=== PATIENT | female | born 1970 | race Caucasian/White ===

== ENCOUNTER 2019-01-06 22:38 | Observation (INO) | payer OTHER ==
[~2019-01-06] VITALS: Ht 157.5 cm; Wt 114.3 kg
[2019-01-06] MEDS ORDERED: LIPITOR 20 MG T20 M1 PO (22:48)
[2019-01-06] MEDS ORDERED: ESKALITH300 MG PO (22:48)
[2019-01-06] MEDS ORDERED: NAPROSYN500 MG PO (22:48)
[2019-01-06] MEDS ORDERED: NEXIUM40 MG PO (22:49)
[2019-01-06 23:02] LABS: ABSOLUTE EOSINOPHILS 0.2 thou/uL (0.0-0.7); ABSOLUTE LYMPHOCYTES 2.5 thou/uL (0.8-5.3); ABSOLUTE MONOCYTES 0.6 thou/uL (0.0-1.2); ABSOLUTE NEUTROPHILS 4.5 thou/uL (1.6-8.1); BASOPHILS 0.6 %; EOSINOPHILS 2.6 %; HEMATOCRIT 42.3 % (37.0-47.0); HEMOGLOBIN 13.9 gm/dL (12.0-15.0); LYMPHOCYTES 31.7 %; MCH 29.4 pg (26.0-34.0); MCHC 32.8 g/dL (28.0-37.0); MCV 89.6 fL (80.0-100.0); MONOCYTES 7.5 %; MPV 7.8 fl. (7.2-11.1); NUCLEATED RBCS 0 /100WBC; PLATELET COUNT* 314 thou/uL (150-400); POLYS 57.6 %; RBC 4.72 mil/uL (4.20-5.00); RDW-CV 13.8 % (10.5-14.5); WBC 7.8 thou/uL (4.0-11.0)
[2019-01-06 23:10] LABS: ANION GAP 7 mmol/L (7-16); BUN 13 mg/dL (7-18); CALCIUM 8.8 mg/dL (8.5-10.1); CHLORIDE 106 mmol/L (98-107); CO2 27 mmol/L (21-32); GLUCOSE 94 mg/dL (70-99); POTASSIUM 4.1 mmol/L (3.5-5.1); SODIUM 140 mmol/L (136-145)
[2019-01-06 23:19] LABS: ALBUMIN 3.3 g/dL (3.4-5.0); ALKALINE PHOSPHATASE 99 U/L (46-116); LIPASE 127 U/L (73-393); SGOT 15 U/L (15-37); SGPT 28 U/L (30-65); TOTAL BILIRUBIN 0.2 mg/dL (<0.1-1.0); TROPONIN-I LEVEL <0.06 ng/mL (<0.06)
[2019-01-07] VITALS (12 sets, daily range): BP systolic 122–174; BP diastolic 72–113
[2019-01-07] MEDS ORDERED: LOPRESSOR25 PO (02:22)
[2019-01-07 08:41] LABS: CHOLESTEROL 219 mg/dL (<200); HDL CHOLESTEROL 44 mg/dL (>40); LDL CHOLESTEROL 149 mg/dL (<100); TRIGLYCERIDE 133 mg/dL (<150); VLDL 27 mg/dL (<40)
[2019-01-07 08:42] LABS: SERUM ASSESSMENT Clear
[2019-01-07] MEDS ORDERED: OMEPRAZOLE 20 M20 M1 PO (10:34)
--- NOTE | 2019-01-07 11:53 | NUR ---
Pt is A&O. Pt lives in [place], here on vacation. Per Pt, she has [place] medicaid. No DME. No hx of HH or SNF. Dtr in room. Pt having an Echo and Andiogram today. Following.
--- NOTE | 2019-01-07 14:54 | CARD ---
[address] [address] CARDIAC CATH REPORT Name: BRANDON GOSS Room: [address] Shon MShellyRShelly#: [id number] Admission: 01/06/19 Attend Phys: Maddie Cazares MD Discharge: Date of : 66 Report #: [id number] THIS REPORT FOR: //name// APPROVED REPORT Study performed: 01/07/2019 11:12:08 Patient Details The patient is a 48 year-old female Event Personnel Soy Delaney Patternator, Urvashi Hsu RN Programmer Developer, Monique Bustamante RTR Monitor, Shaheen Zapata BOX CAR WASHER Monitor, Bridget Avendano RTR Scrub Procedures Performed Art Access - R femoral artery Left Heart Cath w/or w/o Coronaries LHC Hemostasis w/ Mynx Risk Factors Hypercholesterolemia, Hypertension Procedure Narrative The patient was brought electively to the Cardiac Catheterization Laboratory and was prepped and draped in a sterile manner. The right femoral was infiltrated with 2% Lidocaine subcutaneous anesthesia. A [place]ain[place] 6 FR sheath was inserted into the right femoral artery. Coronary angiography was performed using coronary diagnostic catheters. The right coronary system was accessed and visualized with a JR 4 6F and 3 DRC 6F catheter. The left coronary system was accessed and visualized with a JL 4 6F catheter. The left ventricle was accessed and visualized with a Straight Pig 6F catheter. Left ventricular/Aortic Valve gradient assessed via catheter pullback. Pre-demployment femoral angiogram was performed . Closure device was deployed with a Fr MynxGrip 6/7F. The patient tolerated the procedure well and there were no complications associated with the procedure. There was no hematoma. Intraoperative Conscious Sedation Sedation start time: 1200 Case end Time: 1238 Fentanyl 50 mcg Versed 3 mg Fluoro Time: 5.3 minutes Dose: DAP 21657 cGycm2 1063 [place] [address] CARDIAC CATH REPORT Name: BRANDON GOSS Room: [address] M.R.#: [id number] Admission: 01/06/19 Attend Phys: Maddie Cazares MD Discharge: Date of : 66 Report #: [id number] Contrast Type and Amount: Visipaque 120 ml Coronary Angiography The patient's coronary anatomy is right dominant. Diagnostic Cath Left Main 0% narrowing LAD 20% mid LAD narrowing Circumflex 0% narrowing Right Coronary Dominant vessel with 0% narrowing Left Ventriculography The left ventricle is normal in size with normal contractility. The left ventricular ejection fraction is estimated to be 60%. Left ventricular wall motion abnormalities are not present. There is no mitral insufficiency. Hemodynamics The aortic pressure is 125/76 mmHg with a mean of 95 mmHg. The left ventricular pressure is 156/5 mmHg with a mean of mmHg. The left ventricular end diastolic pressure is 15 mmHg. There was no gradient across the aortic valve upon pullback. Conclusion #1 mild coronary artery disease characterized by the following: A 20% mid LAD narrowing B normal left main nondominant circumflex and dominant right coronary arteries #2 normal left ventricular systolic function, estimated ejection fraction being 60% #3 normal left-sided hemodynamics study Diagnostic Cath Approved by: Soy Delaney MD Date/Time: 01/07/2019 14:52:53 <ELECTRONICALLY SIGNED> By: Soy Delaney MD, [facility] 01/07/19 1453 1453 1453Soy Delaney MD, [facility] /INF
--- NOTE | 2019-01-07 16:40 | 2DMMODE ---
[address] [address] 2 D/M-MODE ECHOCARDIOGRAM Name: BRANDON GOSS Room: [address] MSelma#: [id number] Admission: 01/06/19 Attend Phys: Maddie Cazares MD Discharge: Date of : 66 Date of Service: 01/07/19 [facility] Report #: [id number] THIS REPORT FOR: //name// APPROVED REPORT Study performed: 01/07/2019 09:47:35 EXAM: Comprehensive 2D, Doppler, and color-flow Echocardiogram Patient Location: In-Patient Room #: [facility] Status: routine BSA: 2.11 HR: 75 bpm BP: 131/98 mmHg Rhythm: NSR Other Information Study Quality: Good Indications Chest Pain 2D Dimensions IVSd: 12.43 (7-11mm) LVOT Diam: 20.92 (18-24mm) LVDd: 44.18 mm PWd: 12.05 (7-11mm) Ascending Ao: 37.50 (22-36mm) LVDs: 29.25 (25-40mm) Aortic Root: 31.32 mm Volumes Left Atrial Volume (Systole) LA ESV Index: 20.50 mL/m2 Aortic Valve AoV Peak Devin.: 1.52 m/s AO Peak Gr.: 9.19 mmHg LVOT Max P.21 mmHg AO Mean Gr.: 4.93 mmHg LVOT Mean P.27 mmHg LVOT Max V: 1.14 m/s AO V2 VTI: 29.19 cm LVOT Mean V: 0.68 m/s AZUL (VTI): 2.65 cm2 LVOT V1 VTI: 22.53 cm Mitral Valve E/A Ratio: 1.01 MV Decel. Time: 238.27 ms MV E Max Devin.: 0.82 m/[place] [address] 2 D/M-MODE ECHOCARDIOGRAM Name: BRANDON GOSS Room: [address] M.R.#: [id number] Admission: 01/06/19 Attend Phys: Maddie Cazares MD Discharge: Date of : 66 Date of Service: 01/07/19 [facility] Report #: [id number] MV PHT: 69.10 ms MVA (PHT): 3.18 cm2 TDI E/Lateral E': 6.83 E/Medial E': 8.20 Medial E' Devin.: 0.10 m/s Lateral E' Devin.: 0.12 m/s Pulmonary Valve PV Peak Devin.: 0.92 m/s PV Peak Gr.: 3.41 mmHg Left Ventricle The left ventricle is normal size. There is normal LV segmental wall motion. Mild concentric left ventricular hypertrophy. Left ventricular systolic function is normal. The left ventricular ejection fraction is within the normal range. LVEF is 60-65%. Grade I - abnormal relaxation pattern. Right Ventricle The right ventricle is normal size. The right ventricular systolic function is normal. Atria The left atrium size is normal. The right atrium size is normal. Aortic Valve The aortic valve is normal in structure. No aortic regurgitation is present. There is no aortic valvular stenosis. Mitral Valve The mitral valve is normal in structure. There is no mitral valve regurgitation noted. No evidence of mitral valve stenosis. Tricuspid Valve The tricuspid valve is normal in structure. Trace tricuspid regurgitation. Pulmonic Valve The pulmonary valve is normal in structure. There is no pulmonic valvular regurgitation. Great Vessels The aortic root is normal in size. IVC is normal in size and collapses >50% [place] [address] 2 D/M-MODE ECHOCARDIOGRAM Name: BRANDON GOSS Room: [address]#: [id number] Admission: 01/06/19 Attend Phys: Maddie Cazares MD Discharge: Date of : 66 Date of Service: 01/07/19 [facility] Report #: [id number] Pericardium There is no pericardial effusion. <Conclusion> The left ventricle is normal size. Mild concentric left ventricular hypertrophy. Left ventricular systolic function is normal. The left ventricular ejection fraction is within the normal range. LVEF is 60-65%. Grade I - abnormal relaxation pattern. The right ventricle is normal size. The left atrium size is normal. The aortic valve is normal in structure. The mitral valve is normal in structure. The tricuspid valve is normal in structure. IVC is normal in size and collapses >50% with inspiration. There is no pericardial effusion. There is normal LV segmental wall motion. <ELECTRONICALLY SIGNED> By: Soy Delaney MD, [facility] 01/07/19 1640 1640 1640 Soy Delaney MD, [facility] /INF
--- NOTE | 2019-01-07 18:03 | EKG ---
[place] [address] ELECTROCARDIOGRAM REPORT Name: BRANDON GOSS Room: [address] M.R.#: [id number] Admission: 01/06/19 Attend Phys: Maddie Cazares MD Discharge: Date of : 66 Report #: [id number] THIS REPORT FOR: //name// [facility] ED Test Date: 2019-01-06 Test Time: 22:41:58 Pat Name: BRANDON GOSS Department: Room: [facility] Gender: F Visitor Services Technician: NIGEL : 1970 Requested By: Zachary Torres Order Number: [id number] MD: Justin Wasserman Measurements Intervals [place] Rate: 83 P: -18 NE: 128 QRS: 35 QRSD: 82 T: 27 QT: 349 QTc: 410 Interpretive Statements Sinus rhythm No previous ECG available for comparison Electronically Signed On 01-07-2019 18:02:51 CDT by Justin Wasserman [email or web address] <ELECTRONICALLY SIGNED> By: Terra Wasserman MD, [facility] 01/07/19 180 40 40 Terra Wasserman MD, FAC /EPI
--- NOTE | 2019-01-07 18:26 | NUR ---
RECEVIED REPORT FROM JEREMIAH GRISSOM. ASSUMED CARE OF PT AROUND 0730. PT A&O X4. PLEASANT BUT ANXIOUS. VSS, BP A BIT ELEVATED. CUSTOMER MANAGEMENT SPECIALIST AWARE. HOME MEDS REORDERED. DIVISION ROADMASTER IN PLACE TRACING SR WITH NO CHANGES THIS SHIFT. AM ASSESSMENT AND VITALS COMPLETED CHARTED. DAUGHTER AT BEDSIDE. PT WENT DOWN TO [employer] GRAIN AROUND 1130 AND RETURNED AROUND 1305. RIGHT GROIN CDI, NO HEMATOMA. POST CATH VITALS CHARTED - PT REFUSED VITALS AT 1600 AND 1700. LAID FLAT TILL 1800. PT TOLERATING DIET - APPETITE GOOD. PT WANTING TO GO HOME TONIGHT WHEN DAUGHTER RETURNS FROM WORK AT MIDNIGHT; EDUCATED THAT HOSPITALIST FEELS IT IS BEST FOR HER TO STAY OVER NIGHT FOR OBSERVATION. PT CURRENTLY RESTING IN BED. CALL LIGHT IS WITHIN REACH. HOURLY ROUNDING PERFORMED. FALL PRECAUTIONS IN PLACE. WCTM FOR DURATION OF SHIFT.
[2019-01-08 00:34] VITALS: BP 148/94
[2019-01-08 04:36] LABS: HEMATOCRIT 38.9 % (37.0-47.0); HEMOGLOBIN 13.1 gm/dL (12.0-15.0); MCH 29.9 pg (26.0-34.0); MCHC 33.7 g/dL (28.0-37.0); MCV 88.6 fL (80.0-100.0); MPV 7.9 fl. (7.2-11.1); RBC 4.39 mil/uL (4.20-5.00); RDW-CV 13.6 % (10.5-14.5); WBC 7.2 thou/uL (4.0-11.0)
[2019-01-08 04:47] VITALS: BP 163/88
[2019-01-08 04:53] LABS: APTT 25.5 Seconds (25.0-31.3); INR 0.9; PROTIME 9.6 Seconds (9.20-11.50)
[2019-01-08 04:54] LABS: ALBUMIN 3.1 g/dL (3.4-5.0); CALCIUM 8.3 mg/dL (8.5-10.1); CREATININE 0.8 mg/dL (0.6-1.3); MAGNESIUM 1.9 mg/dL (1.8-2.4); POTASSIUM 4.4 mmol/L (3.5-5.1); TOTAL BILIRUBIN 0.2 mg/dL (<0.1-1.0); TOTAL PROTEIN 6.4 g/dL (6.4-8.2)
--- NOTE | 2019-01-08 06:07 | NUR ---
PT SLEPT MOST OF SHIFT. ASSESSMENT DOCUMENTED. MEDS GIVEN PER E-JUN. IV PATENT, FLUIDS RUNNING. NO REPORTS OF PAIN THIS SHIFT. PT STATED THAT SHE WAS GOING TO LEAVE BETWEEN 2300 AND 0000 WHEN HER DAUGHTER GOT HERE, HOSPITALIST AND CARDIOLOGY NOTIFIED. PT EDUCATED. WHEN PTS DAUGHTER ARRIVED, PTS DAUGHTER EDUCTATED, PTS DAUGHTER STATED THAT SHE WAS GOING TO STAY SO SHE CAN "GET SOME SLEEP". PT STATES THIS AM THAT SHE WILL NO LONGER ALLOW BLOOD PRESSURES TO BE TAKE BECAUSE IT HURTS SO BAD, THEN THREW HER BP CUFF IN THE TRASH. WILL CONTINUE WITH PLAN OF CARE.
[2019-01-08] MEDS ORDERED: NITROGLYCERIN0.4 MG SUBLING (09:33)
[2019-01-08] MEDS ORDERED: PRINIVIL10 MG PO (09:56)
[2019-01-08 10:00] VITALS: BP 150/90
[2019-01-08 10:37] VITALS: BP 150/90
[2019-01-08] MEDS ORDERED: ASPIRIN325 PO (10:46)
--- NOTE | 2019-01-08 11:20 | NUR ---
ASSUMED PT CARE AT 0800, AOX4, UP AD KIMMY, O2 SAT 90'S RA. TRACING SR ON TELE. DENIES PAIN. CATH SITE C/D/I. PT FOR DISCHARGE. VSS, AM ASSESSMENT CHARTED, MEDS GIVEN PER MAR, CALL LIGHT WITHIN REACH. WILL CONTINUE TO MONITOR.
--- NOTE | 2019-01-08 11:30 | NUR ---
DISCHARGED PLAN DISCUSSED WITH THE PT. IV, TELE REMOVED. MEDICATION PACKET/SCRIPT GIVEN. REMINDED TO FOLLOW UP WITH PCP. CATH SITE CARE ADVISED. ALL BELONGINGS PACKED AND CHECKED. LEFT THE UNIT VIA WHEELCHAIR.
== END 2019-01-08 11:57 | disposition home or self-care (01) ==
LOC: M.ERS 22:38 → M.TBA-ER 23:36 → M.2W 23:36
PROVIDERS: Emergency Medicine Emergency Medical Services; Internal Medicine; Registered Nurse; ADMIT Family Medicine
DX: I20.0 Unstable angina (principal); I10 Essential (primary) hypertension; E78.5 Hyperlipidemia, unspecified; K21.9 Gastro-esophageal reflux disease without esophagitis; F31.9 Bipolar disorder, unspecified; J44.9 Chronic obstructive pulmonary disease, unspecified; F17.210 Nicotine dependence, cigarettes, uncomplicated; Z98.51 Tubal ligation status; Z79.1 Long term (current) use of non-steroidal anti-inflammatories (NSAID); Z79.899 Other long term (current) drug therapy